=== PATIENT | female | born 1995 | race Caucasian/White ===

== ENCOUNTER 2017-08-16 06:13 | Inpatient (IN) | payer OTHER, MEDICAID ==
[~2017-08-16] VITALS: Ht 154.9 cm; Wt 68.0 kg
--- NOTE | ~2017-08-16 | DS ---
PATIENT:ANDREWS MISHRA :89 MEDICAL RECORD: [id number] DISCHARGE SUMMARY ADMISSION DATE: 08/16/17 DISCHARGE DATE: 08/18/17 DATE OF ADMISSION: 08/16/2017. DATE OF DISCHARGE: 08/18/2017. ADMISSION DIAGNOSIS: Active labor. DISCHARGE DIAGNOSIS: Mother delivered at term. ATTENDING: Radha Moseley MD HISTORY OF PRESENT ILLNESS: See H&P in the chart. SUMMARY OF HOSPITALIZATION: The patient was admitted to the hospital and delivered without incident. The patient did well in the course. The patient stayed for a full 48 hours due to GBS status of the mother. The patient at the time of discharge has adequate pain control with vosyagb-nj-ajdgciwy lochia. Contraception counseling has been conducted and she is following up in 6 weeks. Precautions have been reviewed. TRANSINT:[id number] Voice Confirmation ID: [id number] DOCUMENT ID: [id number] RADHA MOSELEY MD at 1325 CC: [id number] DICTATION DATE: 08/18/17 1401 CARROT GRADER INSPECTOR: 08/18/17 1527 DIS IN 08/18/17 [place] [id number] [place] [address]
--- NOTE | ~2017-08-16 | OP ---
PATIENT NAME: ANDREWS MISHRA MEDICAL RECORD: [id number] :89 LOCATION:[id number] ADMISSION DATE:08/16/17 SURGEON: TREE NGUYEN MD DATE OF OPERATION: 08/16/2017 DELIVERY NOTE PREDELIVERY DIAGNOSIS: Active labor at term. POSTDELIVERY DIAGNOSIS: Mother delivered at term. PROCEDURE: Vaginal delivery. ATTENDING: Tree Nguyen MD ANESTHETIC: Continuous lumbar epidural. FINDINGS: Viable female in ROSEANN presentation, Apgars are 9 and 9, weight 3760 grams. First degree laceration repaired with 4-0 chromic. Placenta spontaneous and intact. ESTIMATED BLOOD LOSS: 350 cc. DISPOSITION: Mother and infant recovered in the room. TRANSINT:[id number] Voice Confirmation ID: [id number] DOCUMENT ID: [id number] TREE NGUYEN MD at 1415 CC: [id number] DICTATION DATE: 08/16/17 0909 REJECTED ITEMS CLERK: 08/16/17 1437 ADM IN [place] [id number] [place] [id number]
[2017-08-16 06:57] VITALS: BP 115/77; Ht 154.9 cm; Wt 68.0 kg
[2017-08-16] MEDS ORDERED: PRENATAL COMPLE1 TAB PO (06:57)
[2017-08-16 07:06] LABS: HEMATOCRIT 32.7 % (36.0-48.0); MCH 21.3 pg (26.0-34.0); MCHC 30.6 g/dL (31.0-37.0); MCV 69.7 fL (80.0-100.0); MEAN PLATELET VOLUME 9.3 fL (7.4-10.4); RBC 4.69 10x6/uL (4.00-5.40); RDW 16.4 % (11.5-14.5); WBC 7.6 10x3/uL (4.8-10.8)
[2017-08-16 08:25] LABS: UDS - AMPHET NEGATIVE QUAL (NEGATIVE); UDS - BARB NEGATIVE QUAL (NEGATIVE); UDS - BENZO NEGATIVE QUAL (NEGATIVE); UDS - COCAINE NEGATIVE QUAL (NEGATIVE); UDS - OPIATE NEGATIVE QUAL (NEGATIVE); UDS - PCP NEGATIVE QUAL (NEGATIVE); UDS - THC NEGATIVE QUAL (NEGATIVE)
[2017-08-16 09:07] LABS: APPEARANCE CLEAR (CLEAR); BACTERIA FEW /hpf (NONE SEEN); BILIRUBIN NEGATIVE (NEGATIVE); COLOR YELLOW (YELLOW); EPITHELIAL CELLS 0-5 /hpf (0-5); GLUCOSE NEGATIVE (NEGATIVE); KETONE NEGATIVE (NEGATIVE); MUCUS <1+ /lpf (NONE SEEN); NITRITE NEGATIVE (NEGATIVE); PROTEIN NEGATIVE (NEGATIVE); RED CELLS - URINE 0-5 /hpf (0-5); SPECIFIC GRAVITY 1.015 (1.005-1.020); UROBILINOGEN NORMAL (NORMAL); WHITE CELLS - URINE RARE /hpf (0-5)
[2017-08-16 19:07] VITALS: BP 124/60
[2017-08-17 05:14] LABS: RAPID PLASMA REAGIN Non Reactive (Non Reactive)
[2017-08-17 07:45] VITALS: BP 109/75
[2017-08-17 15:27] VITALS: BP 107/62
[2017-08-17 19:43] VITALS: BP 121/81
[2017-08-18 07:45] VITALS: BP 124/72
== END 2017-08-18 15:25 | disposition home or self-care (01) | DRG 775 ==
LOC: D.LD 06:13 → D.SDCHOLD 06:13 → D.LD 06:32
PROVIDERS: Obstetrics & Gynecology
PROC: 0HQ9XZZ Repair Perineum Skin, External Approach (ICD-10-PCS; principal; 2017-08-16)
PROC: 10E0XZZ Delivery of Products of Conception, External Approach (ICD-10-PCS; 2017-08-16)
DX: O99.824 Streptococcus B carrier state complicating childbirth (principal); Z3A.39 39 weeks gestation of pregnancy; Z37.0 Single live birth; O70.0 First degree perineal laceration during delivery